=== PATIENT | female | born 1950 | race Caucasian/White ===

== ENCOUNTER → 2018-11-29 | Outpatient (CLI) | payer BC ==
[2016-11-11 10:25] VITALS: BP 163/90
[~2018-11-29] MED LIST: DILT60TA PO; ESZO2TAB21 PO; PANT40TA5 PO; RIVA10TA PO; TRAM50TA PO
--- NOTE | 2018-12-03 09:25 | RAD ---
DATE: 11/29/2018 EXAM: MAMMO ZE SCREENING BILATERAL HISTORY: Routine screening, breast implants COMPARISON: 08/21/2016 This study was interpreted with the benefit of Computerized Aided Detection (CAD). Breast Density: HETERO The breast parenchyma is heterogenously dense, which could reduce sensitivity of mammography. Breast parenchyma level C. FINDINGS: Routine and implant exclusion 2-D views were obtained in CC and MLO projections. 3-D tomosynthesis implant exclusion views were also obtained. Bilateral breast implants are in place with extensive capsular calcifications. On the right MLO view nodular densities in a streaky pattern can be seen extending superiorly from the breast implant. The appearance suggests silicone extravasation due to rupture versus dystrophic calcifications. This appearance was not evident on the previous studies. No suspicious breast mass is seen. No malignant type microcalcifications are visualized. IMPRESSION: 1. Bilateral breast implants demonstrate extensive capsular calcifications. 2. Densities along the superior margin of the right breast implant suggesting silicone extravasation versus dystrophic calcifications. 3. No mammographic evidence of malignancy in either breast. BI-RADS CATEGORY: 2 BENIGN FINDING(S) RECOMMENDED FOLLOW-UP: 12M 12 MONTH FOLLOW-UP PQRS compliance statement: Patient information was entered into a reminder system with a target due date for the next mammogram. Mammography is a sensitive method for finding small breast cancers, but it does not detect them all and is not a substitute for careful clinical examination. A negative mammogram does not negate a clinically suspicious finding and should not result in delay in biopsying a clinically suspicious abnormality. "Our facility is accredited by the [employer] Mammography Program."
== END | disposition home or self-care (01) ==
LOC: MAMMO 11:02
PROVIDERS: ATTEND Physician Assistant Medical
DX: Z12.31 Encounter for screening mammogram for malignant neoplasm of breast (principal)
CPT/HCPCS: 77063; 77067

== ENCOUNTER → 2019-02-10 | Outpatient (CLI) | payer BC, MEDICARE ==
[2016-11-11 10:25] VITALS: BP 163/90
--- NOTE | 2019-02-10 17:00 | RAD ---
EXAM: AP, lateral and lumbosacral spot views of the lumbar spine DATE: 02/10/2019 12:00 AM INDICATION: Low back pain COMPARISON: No Prior FINDINGS: There are 5 nonrib-bearing lumbar-type vertebral bodies. Vertebral body heights are preserved. Intervertebral disc heights are preserved. Moderate facet degenerative changes at L3-4, L4-5 and L5-S1. Mild straightening of the normal lumbar lordosis. No significant spondylolisthesis. IMPRESSION: 1. Negative acute fracture or subluxation. 2. Facet degenerative changes most prominent at L3-4 and below. Electronically signed by: Pascual Boyle MD (02/10/2019 4:57 PM) [id number]
== END | disposition home or self-care (01) ==
LOC: RAD 14:15
PROVIDERS: ATTEND Orthopaedic Surgery Sports Medicine
DX: M47.817 Spondylosis without myelopathy or radiculopathy, lumbosacral region (principal)
CPT/HCPCS: 72100

== ENCOUNTER → 2019-09-04 | Outpatient (CLI) | payer BC, MEDICARE ==
[2016-11-11 10:25] VITALS: BP 163/90
--- NOTE | 2019-09-04 18:19 | RAD ---
Indication: Postmenopausal screening for osteoporosis. Follow-up study. COMPARISON: May 28, 2012. Bone Density: -BMD: (g/cm2) - AP Spine Total (L1-L4).......... 1.064. - Total right Hip................. 0.935. T-Score: - AP Spine Total (L1-L4)......... -1.0. - Total right Hip................. -0.2. Z-Score: - AP Spine Total (L1-L4).......... 0.4. - Total right Hip................. 1.1. World Health Organization criteria for BMD interpretation classify patients as Normal (T-score at or above -1.0), Osteopenic (T-score between -1.0 and -2.5), or Osteoporotic (T-score at or below -2.5). Impression: 1. AP Spine Total L1-L4--- borderline normal. Since the previous study, there has been a decrease in the BMD of approximately 13 %.. 2. Total right Hip--- normal study. Since the previous study, there has been a decrease in the BMD of approximately 8%. Electronically signed by: Christopher Toro MD (09/04/2019 6:16 PM) [email or web address]
== END ==
LOC: DXRAD 11:17
PROVIDERS: ATTEND Physician Assistant Medical
DX: Z13.820 Encounter for screening for osteoporosis (principal); Z78.0 Asymptomatic menopausal state
CPT/HCPCS: 77080

== ENCOUNTER → 2020-09-07 | Outpatient (CLI) | payer BC, MEDICARE ==
[2016-11-11 10:25] VITALS: BP 163/90
[~2020-09-07] MED LIST changes: -PANT40TA5 PO; +PANT40TA6 PO
--- NOTE | 2020-09-07 14:27 | RAD ---
EXAM: Frontal pelvis with two-view left hip. HISTORY: Left hip pain. COMPARISON: None. FINDINGS: The superior and medial joint space of the right hip is effaced. Deep femoral head is over coverage with early protrusio. There is moderate osteophytosis. There is moderate osteoarthritis of the left hip with moderate joint space narrowing worst posteriorl y. There is no protrusio. No fractures are identified. There are mild degenerative changes of the lower lumbar spine. IMPRESSION: 1. Moderate to severe right and moderate left hip osteoarthritis as above. Electronically signed by: Kristi Guzmán MD (09/07/2020 2:25 PM) [facility]
--- NOTE | 2020-09-07 15:14 | RAD ---
DATE: 09/07/2020 11:20 AM EXAM: MAMMO ZE SCREENING BILATERAL HISTORY: Screening COMPARISON: 11/29/2018 Bilateral CC and MLO views of the breasts were performed with and without implant displacement. Bilateral breast tomosynthesis was performed in implant displaced CC and MLO projections. This study was interpreted with the benefit of Computerized Aided Detection (CAD). FINDINGS: Breast Density: SCATTERED The breast parenchyma shows scattered fibroglandular densities. Breast parenchyma level B Bilateral retroglandular silicone implants are present with evidence of extracapsular silicone on the right and capsular bulging versus extracapsular silicone on the left. Bilateral dense capsular calcifications are present. No suspicious masses, microcalcifications or architectural distortion is present to suggest malignancy in either breast. The visualized axillae are unremarkable. IMPRESSION: No mammographic evidence of malignancy. BI-RADS CATEGORY: 2 BENIGN FINDING(S) RECOMMENDED FOLLOW-UP: 12M 12 MONTH FOLLOW-UP Annual screening mammography is recommended, unless clinically indicated sooner based on symptoms or change in physical exam. PQRS compliance statement: Patient information was entered into a reminder system with a target due date for the next mammogram. Mammography is a sensitive method for finding small breast cancers, but it does not detect them all and is not a substitute for careful clinical examination. A negative mammogram does not negate a clinically suspicious finding and should not result in delay in biopsying a clinically suspicious abnormality. "Our facility is accredited by the [employer] Mammography Program."
== END ==
LOC: PMG 10:24
PROVIDERS: ATTEND Physician Assistant Medical
DX: Z12.31 Encounter for screening mammogram for malignant neoplasm of breast (principal); M25.552 Pain in left hip; M16.12 Unilateral primary osteoarthritis, left hip
CPT/HCPCS: 73502; 77063; 77067

== ENCOUNTER → 2021-02-16 | Outpatient (CLI) | payer BC, MEDICARE ==
[2016-11-11 10:25] VITALS: BP 163/90
--- NOTE | 2021-02-16 15:39 | RAD ---
EXAM: Abdomen and pelvis CT without intravenous contrast. HISTORY: Left-sided pain. TECHNIQUE: Computed tomographic images of the abdomen and pelvis were obtained without contrast. Mult iplanar reformatting was performed. *One or more of the following individualized dose reduction techniques were utilized for this examina tion: 1. Automated exposure control. 2. Adjustment of the mA and/or kV according to patient size. 3. Use of iterative reconstruction technique. COMPARISON: None. FINDINGS: Evaluation of the lower thorax is unremarkable. The superior hepatic dome is excluded from the [id number]. No hepatic lesion is seen. The gallbladder is unremarkable. There are tiny suspect ed incidental proximal duodenal diverticulum. The pancreas is unremarkable. There is a small splenic adjacent to the splenic tail. The spleen is normal in size. The adrenal glands are unremarkable. There is a punctate nonobstructing left renal stone measuring 1 to 2 mm. There is mild right renal at rophy. There is no hydronephrosis. There is no appendicitis. There is no bowel obstruction. There is distal colonic diverticulosis. There is no diverticulitis. The bladder is unremarkable. There is a ti ny fat-containing left inguinal hernia. The aorta is normal in caliber. There is no lymphadenopathy. There is no suspicious osseous lesion. IMPRESSION: 1. No acute abdominal or pelvic finding. 2. Distal colonic diverticulosis. 3. Left nephrolithiasis. Electronically signed by: Simran Ortiz MD (02/16/2021 3:36 PM) [id number]
== END ==
LOC: CT 15:19
PROVIDERS: ATTEND Physician Assistant Medical
DX: K57.30 Diverticulosis of large intestine without perforation or abscess without bleeding (principal); N26.1 Atrophy of kidney (terminal); N20.0 Calculus of kidney
CPT/HCPCS: 74176

== ENCOUNTER → 2021-04-18 | Outpatient (CLI) | payer BC ==
[2016-11-11 10:25] VITALS: BP 163/90
--- NOTE | 2021-04-18 10:48 | RAD ---
XR CHEST 2V INDICATION: FALL ONTO LEFT SIDE, CHEST WALL PAIN COMPARISON STUDY: None. FINDINGS: Lungs: Normal lung volume. No pulmonary mass or consolidation. The tracheobronchial tree and hilar st ructures are normal. Pleura: No pleural effusion or pneumothorax. Heart and Mediastinum: The cardiomediastinal silhouette is normal. Tortuosity of the thoracic aorta. Bones and Soft Tissues: Degenerative changes of the spine. S-shaped thoracolumbar curvature. No displ aced rib fractures are seen. IMPRESSION: No acute cardiopulmonary process. No displaced rib fractures are seen Electronically signed by: Santos Peterson MD (04/18/2021 10:45 AM) [id number]
== END ==
LOC: RAD 09:58
PROVIDERS: ATTEND Nurse Practitioner Family
DX: R07.89 Other chest pain (principal)
CPT/HCPCS: 71046

== ENCOUNTER → 2021-07-27 | Outpatient (CLI) | payer BC ==
[2016-11-11 10:25] VITALS: BP 163/90
--- NOTE | 2021-07-27 17:59 | RAD ---
XR CHEST 2V History: Short of air. Comparison: 04/18/2021 Technique: PA and lateral chest radiographs. Findings: The lungs are adequately inflated. No focal airspace consolidation, pleural effusion or pneumothorax. The cardiomediastinal silhouette and pulmonary vasculature are within normal limits. There are bilat eral calcified breast implants. Decreased osseous mineralization and degenerative changes in the spin e with biphasic scoliotic curvature. Impression: 1. No acute cardiopulmonary process. Electronically signed by: Rocky Eden MD (07/27/2021 5:57 PM) [id number]
== END ==
LOC: RAD 13:12
PROVIDERS: ATTEND Physician Assistant Medical
DX: Z01.818 Encounter for other preprocedural examination (principal); M41.84 Other forms of scoliosis, thoracic region
CPT/HCPCS: 71046

== ENCOUNTER → 2022-01-16 | Outpatient (CLI) | payer BC ==
[2016-11-11 10:25] VITALS: BP 163/90
--- NOTE | 2022-01-16 17:13 | RAD ---
Bilateral digital screening 2-D and 3-D (digital breast tomosynthesis) mammogram: Reason for examination: Routine screening. Comparison: Mammograms from the 11/29/2018 and 09/07/2020. Interpretation was made with the benefit of CAD. FINDINGS: Breast density: Category B. There are scattered areas of fibroglandular density. No suspicious breast mass, malignant appearing calcifications, or architectural distortion is seen. A gain streaky seen is extravasated silicon superior to the right breast implant extending into the axi lla. There is reimplant capsule calcification both retroglandular silicone breast implants. IMPRESSION: No evidence of malignancy. Again seen is extravasated silicone along the superior posterior aspect of the right breast implant consistent with implant rupture. Assessment: BI-RADS 1. Negative. Recommendation: Routine screening mammograms. The patient will receive a letter with the results in the mail. Patient information will be entered i nto the mammography reminder system with a target recall date for the next mammogram. A reminder nolberto er will be generated. Electronically signed by: Yue Quintanilla MD (01/16/2022 5:10 PM) [id number]
== END ==
LOC: MAMMO 09:56
PROVIDERS: ATTEND Physician Assistant Medical
DX: Z12.31 Encounter for screening mammogram for malignant neoplasm of breast (principal)
CPT/HCPCS: 77063; 77067